=== PATIENT | male | born 1980 | race Caucasian/White ===

== ENCOUNTER 2019-08-25 04:32 | Emergency (ER) | payer BC ==
[2019-08-25] MEDS ORDERED: Tetracaine HCl/PF 0.5% 4 ML Bottle EYEBOTH ONE (04:48)
--- NOTE | 2019-08-25 04:52 | EDM.PDOC ---
ED HPI GENERAL MEDICAL PROBLEM - General Chief Complaint: ENT Problem Stated Complaint: FT EAR HURTS Time Seen by Provider: 08/25/19 04:48 Source of Information: Reports: Patient - History of Present Illness INITIAL COMMENTS - FREE TEXT/NARRATIVE: The patient is a 38-year-old male who presents to the ER secondary to left sided ear pain. The patient has had some minor nasal congestion and has been blowing his nose a lot and sometimes this seems to relieve the ear pain. He has a little bit of pain on the left side of his jaw but nothing significant. Chewing does not bother him. He does notice that there appears to be some hearing changes on the left side. He tried to take some Tylenol for his ear pain but it did not help. No other acute complaints at this time. No trauma. - Related Data Allergies Allergy/AdvReac Type Severity Reaction Status Date / Time No Known Allergies Allergy Verified 08/25/19 04:46 Home Meds: Home Meds Dasatinib [Sprycel] 50 mg PO DAILY 08/25/19 [History] Tapentadol HCl [Nucynta] 75 mg PO DAILY 08/25/19 [History] ED ROS ENT - Review of Systems Review Of Systems: See Below (Positive for left otalgia, positive for nasal congestion, negative for sore throat, negative for fevers, positive for decreased hearing, all other Positives and pertinent negatives as per HPI. All other pertinent systems were reviewed and are negative) ED EXAM, ENT - Physical Exam Exam: See Below Text/Narrative:: Constitutional: No acute distress, Non-toxic appearance. HEENT: Normocephalic, Atraumatic, PERRL, EOMI, nares are patent, oropharynx is widely patent, uvula and tongue are midline, no retropharyngeal peritonsillar abscess, gingival are pink and unremarkable, no reproducible dental pain, no dental abscess, palpation of the left tragus and auricle is unremarkable, the left external canal is unremarkable, the left tympanic membrane has no erythema but there is a small amount of serous fluid behind the left TM but no purulence , no air-fluid levels Neck: Normal range of motion, No stridor, trachea midline Respiratory: No respiratory distress, No tachypnea Cardiovascular: Deferred Gastrointestinal: Deferred Genital / Urinary: Deferred Musculoskeletal: All four extremities present and atraumatic Back: FROM Integument: Warm, Dry, Color is ethnicity appropriate, No rash. Neuro: Alert, Awake, No focal deficits noted Psych: Affect, Judgement, mood normal Course - Vital Signs Text/Narrative:: Symptoms of the patient's left otalgia appears to be secondary to a viral URI with eustachian tube dysfunction. I do not see anything that requires antibiotics. Nor do I feel that his ear pain is referred pain from a dental source or his oropharynx. The patient will be given some tetracaine drops in the ER and sent home with them for symptomatic relief. Last Recorded V/S: Last Vital Signs Temp 35.8 C L 08/25/19 04:36 Pulse 84 08/25/19 04:36 Resp 18 08/25/19 04:36 BP 124/89 08/25/19 04:36 Pulse Ox 95 08/25/19 04:36 Departure - Departure Time of Disposition: 04:51 Disposition: Home, Self-Care 01 Condition: Good Clinical Impression: Otalgia of left ear - Discharge Information Referrals: PCP,None [Primary Care Provider] - Additional Instructions: You can still take ibuprofen and Tylenol for discomfort. Use the eardrops -2 drops in the affected ear every 2 hours as needed for discomfort Sepsis Event Note - Evaluation Sepsis Screening Result: No Definite Risk - Focused Exam Vital Signs: Vital Signs Temp Pulse Resp BP Pulse Ox 08/25/19 04:36 35.8 C L 84 18 124/89 95 Date Exam was Performed: 08/25/19 Time Exam was Performed: 04:48
== END 2019-08-25 05:04 | disposition home or self-care (01) ==
LOC: MW.ED 04:32
DX: H92.02 Otalgia, left ear (principal)
CPT/HCPCS: 99282